=== PATIENT | male | born 1985 | race Two or more races ===

== ENCOUNTER 2018-04-19 16:31 | Emergency (ER) | payer OTHER ==
[~2018-04-19] VITALS: Ht 175.3 cm; Wt 79.8 kg
[2018-04-19 16:42] VITALS: BP 139/85
[2018-04-19] MEDS ORDERED: NEOMYCIN-BACITRACIN-POLYM UNITDOSE PKG TOP OINT TOP ONE (16:45)
[2018-04-19] MEDS ORDERED: LIDOCAINE 1% (LOCAL ANESTH.) PF 5ml SDV ID ONE (16:45)
[2018-04-19] MEDS ORDERED: LIDOCAINE 1% HCL (LOCAL ANESTH.) INJ 20ML MDV ONE (16:52)
== END 2018-04-19 17:27 | disposition home or self-care (01) ==
LOC: EDBD 16:31 → ER 16:31
DX: S01.111A Laceration without foreign body of right eyelid and periocular area, initial encounter (principal); Y04.0XXA Assault by unarmed brawl or fight, initial encounter; Y93.89 Activity, other specified; Y99.8 Other external cause status; Y92.148 Other place in prison as the place of occurrence of the external cause
CPT/HCPCS: 12013; 99283; J2001